=== PATIENT | male | born 1995 | race African-American/Black ===

== ENCOUNTER 2017-11-19 17:10 | Emergency (ER) | payer BC ==
--- NOTE | 2017-11-19 17:28 | PDOC ---
Rapid Medical Evaluation Time Seen by Provider: 11/19/17 17:27 Medical Evaluation: 11/19/17 17:27 I have performed a brief in-person evaluation of this patient. The patient presents with a chief complaint of: Intermittent L flank pain pain x 3 weeks. No other sxs. Tx for "kidney infection" in [facility] 1 yr ago. No h/o kidney stones Pertinent physical exam findings:Unremarkable I have ordered the following:labs/ua The patient will proceed to the ED for further evaluation. 11/19/17 17:29 Discharge Disposition - Diagnosis Flank pain - Referrals - Patient Instructions - Post Discharge Activity
[2017-11-19 17:32] VITALS: TEMP 98.8; BMI 24.8
--- NOTE | 2017-11-19 18:00 | PDOC ---
History of Present Illness - General Chief Complaint: Pain, Acute Stated Complaint: PAIN Time Seen by Provider: 11/19/17 17:27 History Source: Patient Exam Limitations: No Limitations - History of Present Illness Initial Comments: 22 YOM with h/o prior kidney infection dx in [place] one year ago, who p/w worsening intermittent left flank pain x3 weeks. States the pain comes on randomly for ~5 minutes at a time up to 10-15 times/day, worsening and increasing in frequency in the past several days. He describes the pain as sharp and radiating a bit to the epigastrium (patient points) and similar to his prior pain associated with kidney infection for which he was tx with abx. He additionally notes subjective fever/chills and mild headache yesterday, no recent chest pain, SOB, n/v/d/c, rash, or other symptoms. His father reportedly has sickle cell trait but the patient states he has been worked up for this in the past and does not have the disease or the trait. He has been taking ibuprofen for the pain. Past History - Past Medical History Allergies/Adverse Reactions: Allergies Allergy/AdvReac Type Severity Reaction Status Date / Time No Known Allergies Allergy Verified 11/19/17 17:28 Home Medications: Ambulatory Orders NK [No Known Home Medication] 11/19/17 COPD: No Other medical history: DENIES. - Suicide/Smoking/Psychosocial Hx Smoking History: Never smoked Review of Systems - Review of Systems Able to Perform ROS?: Yes Constitutional: Yes: Chills, Fever (subjective). No: Unexplained wgt Loss HEENTM: No: Nose Congestion, Throat Pain Respiratory: No: Cough, Shortness of Breath Cardiac (ROS): No: Chest Pain, Palpitations ABD/GI: No: Constipated, Diarrhea, Nausea, Vomiting : Yes: Flank Pain (left). No: Burning, Dysuria Musculoskeletal: No: Back Pain, Neck Pain Integumentary: No: Bruising, Rash Neurological: Yes: Headache. No: Numbness, Tingling, Weakness, Dizziness Endocrine: No: Unexplained Weight Gain, Unexplained Weight Loss *Physical Exam - Vital Signs Last Vital Signs Temp Pulse Resp BP Pulse Ox 98.8 F 71 19 132/78 99 11/19/17 17:28 11/19/17 17:28 11/19/17 17:28 11/19/17 17:28 11/19/17 17:28 - Physical Exam General Appearance: Yes: Nourished, Appropriately Dressed, Other (nontoxic and well appearing young adult male in no distress who answers questions appropriately). No: Apparent Distress HEENT: positive: EOMI, NINI, Normal ENT Inspection, Normal Voice, Hearing Grossly Normal. negative: Scleral Icterus (R), Scleral Icterus (L), Nasal Congestion Neck: positive: Trachea midline, Supple. negative: Tender, Rigid Respiratory/Chest: positive: Lungs Clear, Normal Breath Sounds. negative: Respiratory Distress, Crackles, Rhonchi, Stridor, Wheezing Cardiovascular: positive: Regular Rhythm, Regular Rate, S1, S2. negative: Edema , JVD, Murmur Gastrointestinal/Abdominal: positive: Normal Bowel Sounds, Flat, Soft. negative : Tender, Organomegaly, Pulsatile Mass, Guarding, Hernia, Hepatomegaly, Spleenomegaly Musculoskeletal: positive: Normal Inspection. negative: CVA Tenderness, Decreased Range of Motion, Vertebral Tenderness Extremity: positive: Normal Capillary Refill, Normal Inspection, Normal Range of Motion. negative: Tender, Cyanosis Integumentary: positive: Normal Color, Dry, Warm. negative: Erythema, Rash, Bruising Neurologic: positive: breading machine tender II-XII NML intact (grossly), Fully Oriented, Alert, Normal Mood/Affect, Normal Response, Motor Strength 5/5 Heart Score/ECG Review #1 11/19/17 18:38 SR rate 61 with normal axis and intervals, incomplete RBBB, no ischemic changes ED Treatment Course - LABORATORY CBC & Chemistry Diagram: 11/19/17 18:27 11/19/17 18:27 Medical Decision Making - Medical Decision Making Pt p/w severe flank pain. Initial Vital Signs Temp Pulse Resp BP Pulse Ox 98.8 F 71 19 132/78 99 11/19/17 17:28 11/19/17 17:28 11/19/17 17:28 11/19/17 17:28 11/19/17 17:28 Exam: Results as noted in Physical Exam section. DDX IBNLT: renal colic, obstructive uropathy, UTI/pyelonephritis, rental artery aneurysm or dissection (mary w/ hematuria and no stone visualized on imaging), ACS, AAA/AD, pneumothorax, PE, cholecystitis, cholangitis, pancreatitis, gastritis, PUD, colitis, ruptured diverticulosis, diverticulitis wwo abscess or perforation, appendicitis, hernia, SBO, malignancy, splenic infarction, mesenteric ischemia, bowel perforation, testicular torsion, epididymitis, orchitis, urethritis, musculoskeletal, constipation, etc. W/U ordered: CBCD CMP Lipase UA UCx CXR EKG TX ordered: None at this time Laboratory Tests 11/19/17 11/19/17 11/19/17 18:27 18:27 18:27 WBC 6.9 RBC 4.89 Hgb 14.5 Hct 41.9 MCV 85.7 MCH 29.8 MCHC 34.7 RDW 13.9 Plt Count 297 MPV 8.0 Absolute Neuts (auto) 3.4 Neutrophils % 49.0 Lymphocytes % 39.4 Monocytes % 8.6 Eosinophils % 1.8 Basophils % 1.2 Nucleated RBC % 0 Sodium 142 Potassium 3.6 Chloride 105 Carbon Dioxide 28 Anion Gap 9 BUN 10 Creatinine 1.2 Creat Clearance w eGFR > 60 Random Glucose 111 H Calcium 8.8 Total Bilirubin 0.7 AST 15 ALT 27 Alkaline Phosphatase 121 H Total Protein 7.7 Albumin 4.3 Lipase Urine Color Yellow Urine Appearance Clear Urine pH 5.0 Ur Specific [place] 1.019 Urine Protein Negative Urine Glucose (UA) Negative Urine Ketones Negative Urine Blood Negative Urine Nitrite Negative Urine Bilirubin Negative Urine Urobilinogen Negative Ur Leukocyte Esterase Negative 11/19/17 18:27 WBC RBC Hgb Hct MCV MCH MCHC RDW Plt Count MPV Absolute Neuts (auto) Neutrophils % Lymphocytes % Monocytes % Eosinophils % Basophils % Nucleated RBC % Sodium Potassium Chloride Carbon Dioxide Anion Gap BUN Creatinine Creat Clearance w eGFR Random Glucose Calcium Total Bilirubin AST ALT Alkaline Phosphatase Total Protein Albumin Lipase 114 Urine Color Urine Appearance Urine pH Ur Specific [place] Urine Protein Urine Glucose (UA) Urine Ketones Urine Blood Urine Nitrite Urine Bilirubin Urine Urobilinogen Ur Leukocyte Esterase CXR: Nothing acute CT A/P with IV contrast: nothing acute Reassessment: Repeat exam benign, patient wants to go home. Repeat VS: DISCHARGE The Pt has gotten significant relief of symptoms with ED medications. Workup is not concerning for emergency-level pathology at this time. The Pt is appropriate for discharge with close outpatient follow up. They are comfortable with this plan and will follow up with their PCP in 1-3 days. They will take Motrin/Tylenol for any pain. They are counseled to stay well-hydrated. Specific return precautions are discussed and they will come back to the ER if necessary. *DC/Admit/Observation/Transfer Diagnosis at time of Disposition: Flank pain - Discharge Dispostion Disposition: HOME Condition at time of disposition: Stable Decision to Admit order: No - Referrals Referrals: [facility] [place] [Provider Group] - Patient Instructions Printed Discharge Instructions: DI for Flank Pain Additional Instructions: You were seen in the ER for left flank pain. We did laboratory tests on your urine, as well as a chest x-ray and a CT scan of the abdomen, and there were no abnormal findings. We did not see signs of an infection in the urine or on your vital signs, but there are urine cultures that are in our microbiology lab running right now, and these will take a couple of days to fully complete the results. We will call you with any abnormal results but we do not believe there is a reason to treat with antibiotics right now. After our assessment, we do not believe you are having a medical emergency at this time, and we believe you are safe to go home. Please take over the counter pain medications for pain ( Motrin and Tylenol), following the instructions on the medication label. Please follow up with your regular doctor in 1-3 days. We are giving you referral information in this packet for our primary care clinic across the street. Call their clinic [facility], tell them you were seen in the ER, and tell them you need an appointment. Please come back to the ER at any time, 24 hours a day, for any new or worsening symptoms, like worsening pain unrelieved with medications, fever, inability to urinate, burning on urination, testicular pain or swelling, or other symptoms. If you are having severe or life threatening symptoms, or symptoms that make it unsafe to drive or have someone drive you, please call 911. - Post Discharge Activity
--- NOTE | 2017-11-19 18:26 | PDOC ---
Attending Attestation - Resident Resident Name: Nona Batista - ED Attending Attestation I have performed the following: I have examined & evaluated the patient, The case was reviewed & discussed with the resident, I agree w/resident's findings & plan - HPI HPI: 11/19/17 18:30 22-year-old healthy male with significant medical history only of left kidney infection a few years ago diagnosed in [place], now comes in with similar left flank pain intermittently for the last 3 weeks. Pain is on and off, occurring multiple times per day but lasting only 5 minutes at a time, sharp and localized to the left flank. Slightly positional, but not pleuritic. No associated fevers or chills, no associated urinary complaints or discharge. On his previous diagnosis of kidney infection, he also did not have any urinary complaints but was ultimately treated successfully with antibiotics. He has no constitutional symptoms, no shortness of breath or cough, no lung pain or chest pain. He does occasionally have epigastric discomfort, but this seems unrelated to the left flank pain. No rash, no injury. - Physicial Exam PE: 11/19/17 18:31 Vital signs normal, afebrile Very well-appearing and ambulating comfortably, seated in stretcher and moving freely Heart and lungs are clear Abdomen is soft/nontender/nondistended, there is no CVA tenderness, there is no bruising or soft tissue swelling or rash No leg edema or calf tenderness - Medical Decision Making 11/19/17 18:32 Healthy 22-year-old male with isolated left flank pain intermittently for 3 weeks, otherwise negative history/review of systems and normal exam. Only preceding events similar to this was his left kidney infection, rule out same. Lower clinical suspicion for pulmonary pathology or PE, no other abdominal complaints or findings. Check labs and urinalysis and urine culture If evidence of infection on urinalysis, which check renal ultrasound to rule out abscess. If urinalysis is clear, consider CT for further evaluation. Reassess <Benito Norris - Last Filed: 11/19/17 18:37> - Medical Decision Making 11/19/17 21:06 Imaging: Abdomen and Pelvis CT with Contrast Reported by: Dr. Saavedra Impression: No definite CT findings of acute abnormality are identified. <Maria Isabel Nichole - Last Filed: 07/13/18 21:06> Heart Score/ECG Review #1 ECG reviewed & interpreted by me at: 18:27 General ECG Interpretation: Sinus Rhythm, Normal Rate (61), Normal Intervals ( qtc 386, IRBBB QRS 108), No acute ischemic changes <Benito Norris - Last Filed: 11/19/17 18:37>
[2017-11-19 18:48] LABS: BASO % 1.2 % (0-2.0); EOS % 1.8 % (0-4.5); HEMATOCRIT 41.9 % (35.4-49); HEMOGLOBIN 14.5 GM/dL (11.7-16.9); LYMPH % 39.4 % (8-40); MCH 29.8 pg (25.7-33.7); MCHC 34.7 g/dl (32.0-35.9); MEAN CELL VOLUME 85.7 fl (80-96); MONO % 8.6 % (3.8-10.2); PLATELET COUNT 297 K/MM3 (134-434); RBC 4.89 M/mm3 (4.00-5.60); RDW 13.9 % (11.9-15.9); WHITE BLOOD COUNT 6.9 K/mm3 (4.0-10.0)
[2017-11-19 19:04] LABS: URINE APPEARANCE CLEAR; URINE BILIRUBIN NEGATIVE (<2.0 mg/dL); URINE COLOR YELLOW; URINE GLUCOSE (UA) NEGATIVE (NEGATIVE); URINE KETONE NEGATIVE (NEGATIVE); URINE LEUK ESTERASE NEGATIVE (NEGATIVE); URINE NITRITE NEGATIVE (NEGATIVE); URINE PROTEIN NEGATIVE (NEGATIVE); URINE UROBILINOGEN NEGATIVE mg/dL (0.2-1.0)
[2017-11-19 19:47] LABS: ALBUMIN 4.3 g/dl (3.4-5.0); ALK PHOS 121 U/L (45-117); ANION GAP 9 (8-16); BILIRUBIN,TOTAL 0.7 mg/dL (0.2-1.0); BLOOD UREA NITROGEN 10 mg/dL (7-18); CALCIUM 8.8 mg/dL (8.5-10.1); CHLORIDE 105 mmol/L (98-107); CO2 28 mmol/L (21-32); CREATININE 1.2 mg/dL (0.7-1.3); GLUCOSE,RANDOM 111 mg/dL (74-106); POTASSIUM 3.6 mmol/L (3.5-5.1); SGOT/AST 15 U/L (15-37); SGPT/ALT 27 U/L (12-78); SODIUM 142 mmol/L (136-145); TOT PROT 7.7 g/dl (6.4-8.2)
[2017-11-19] MEDS ORDERED: SODIUM CHLORIDE 0.9% 500 ML INFUS.BAG IV ONE (19:50)
[2017-11-19 21:10] VITALS: BP 138/58; PULSE 92
--- NOTE | 2017-11-22 20:25 | EKG ---
Test Reason : Blood Pressure : / mmHG Vent. Rate : 061 BPM Atrial Rate : 061 BPM P-R Int : 124 ms QRS Dur : 108 ms QT Int : 384 ms P-R-T Axes : -16 065 025 degrees QTc Int : 386 ms NORMAL SINUS RHYTHM INCOMPLETE RIGHT BUNDLE BRANCH BLOCK BORDERLINE ECG NO PREVIOUS ECGS AVAILABLE Confirmed by MD LEWIS, ISAIAH ([id number]) on 11/22/2017 8:24:42 PM Referred By: Confirmed By:ISAIAH SAUCEDO MD
== END 2017-11-19 21:14 | disposition home or self-care (01) ==
LOC: JER 17:10
PROC: 3E0337Z Introduction of Electrolytic and Water Balance Substance into Peripheral Vein, Percutaneous Approach (ICD-10-PCS; principal; 2017-11-19)
DX: R10.32 Left lower quadrant pain (principal)
CPT/HCPCS: 36415; 71046-TC-FY; 74177-TC; 80053; 81003; 83690; 85025; 87086; 93005; 93010; 99283-25